=== PATIENT | male | born 1965 | race Caucasian/White ===

== ENCOUNTER 2024-06-22 00:08 | Emergency (ER) | payer OTHER ==
[~2024-06-22] VITALS: Ht 165.1 cm; Wt 80.0 kg
[2024-06-22 00:20] VITALS: TEMP 36.9; O2SAT 99
[2024-06-22] MEDS: KETOROLAC 30MG/ML VIAL IM ONE (01:10)
[2024-06-22] MEDS: ACETAMINOPHEN 325MG TABLET PO ONE (01:10)
[2024-06-22] MEDS ORDERED: NAPR-1486 MT (01:52)
[2024-06-22 02:33] VITALS: BP 131/79; PULSE 71; RESP 18; O2SAT 100
== END 2024-06-22 02:34 | disposition home or self-care (01) ==
LOC: ER 00:14
DX: M54.50 Low back pain, unspecified (principal); E78.5 Hyperlipidemia, unspecified; I10 Essential (primary) hypertension; Z79.1 Long term (current) use of non-steroidal anti-inflammatories (NSAID)
CPT/HCPCS: 99284; 71045; 72170; 96372; J1885